=== PATIENT | male | born 1950 | race Caucasian/White ===

== ENCOUNTER 2022-01-22 16:53 | Inpatient (IN) ==
[2022-01-22 17:34] LABS: Basophils # 0.1 K/mcL (0.0-0.2); Basophils % 0.4 %; Eosinophils % 0.1 %; Hematocrit 27.8 % (37.5-50.1); Immature Granulocytes % 1.7 % (0-4); Lymphocytes % 5.1 %; Mean Corpuscular HGB Conc 32.4 g/dL (31.6-35.5); Mean Corpuscular Hemoglobin 30.5 pg (28.0-33.3); Mean Corpuscular Volume 94.2 fL (83.0-100.0); Mean Platelet Volume 9.9 fL (9.4-12.4); Monocytes # 1.6 K/mcL (0.0-1.3); Monocytes % 8.4 %; Platelet Count 466 K/mcL (140-400); Red Blood Count 2.95 M/mcL (4.19-5.50); Segmented Neutrophils % 84.3 %; White Blood Count 19.4 K/mcL (4.3-11.1)
[2022-01-22 17:42] LABS: Neutrophils # 16.4 K/mcL (1.6-8.9)
[2022-01-22 17:49] LABS: BUN/Creatinine Ratio 16 (6-26); Blood Urea Nitrogen 14 mg/dL (8-23); Calcium 8.7 mg/dL (8.6-10.3); Carbon Dioxide 25 mEq/L (23-29); Chloride 100 mEq/L (98-107); Glucose 96 mg/dL (70-105); Osmolality,Calculated 278 (280-300); Potassium 4.4 mEq/L (3.5-5.1); Sodium 134 mEq/L (136-145); eGFR For African Americans > 60 (> 60); eGFR For Non-African Americans > 60 (> 60)
[2022-01-22 17:53] LABS: Troponin I < 0.03 ng/mL (< 0.04)
[2022-01-22 17:56] LABS: Bilirubin,Urine Small (Negative); Blood,Urine Trace-intact (Negative); Clarity,Urine Clear (Clear); Color,Urine Yellow (Yellow); Glucose,Urine (UA) Normal (Normal); Ketones,Urine 15 mg/dL (Negative); Leukocyte Esterase,Urine Negative (Negative); Nitrite,Urine Negative (Negative); Protein,Urine 30 mg/dL (Neg-Trace); Urobilinogen,Urine Normal (Normal)
[2022-01-22 18:02] LABS: RBC,Urine 0-3 per hpf (0-3); WBC,Urine 0-3 per hpf (0-3)
[2022-01-22] MEDS ORDERED: *HR* HYDROcodone/Acet 5/325 mg TABLET PO ONE (18:48)
[2022-01-22] MEDS ORDERED: Acetaminophen 325 MG TABLET PO PRN (19:41)
[2022-01-22] MEDS ORDERED: Naloxone 0.4 MG/ML INJ IVP PRN (19:41)
[2022-01-22] MEDS ORDERED: Ondansetron 4 MG/2 ML VIAL IVP PRN (19:41)
[2022-01-22] MEDS: levETIRAcetam 250 MG TABLET PO SCH (20:59)
[2022-01-22] MEDS: Apixaban 5 MG TABLET PO SCH (21:00)
[2022-01-22] MEDS: Mirtazapine 15 MG TABLET PO SCH (21:01)
[2022-01-22] MEDS: Melatonin 3 MG TABLET PO PRN (21:23)
[2022-01-23 06:52] LABS: Hematocrit 24.9 % (37.5-50.1); Hemoglobin 7.8 g/dL (12.9-16.9); Mean Corpuscular HGB Conc 31.3 g/dL (31.6-35.5); Mean Corpuscular Hemoglobin 29.5 pg (28.0-33.3); Mean Corpuscular Volume 94.3 fL (83.0-100.0); Mean Platelet Volume 10.3 fL (9.4-12.4); Platelet Count 462 K/mcL (140-400); Red Blood Count 2.64 M/mcL (4.19-5.50); Red Cell Distribution Width 15.3 % (11.5-14.5); White Blood Count 15.5 K/mcL (4.3-11.1)
[2022-01-23 07:10] LABS: BUN/Creatinine Ratio 19 (6-26); Blood Urea Nitrogen 17 mg/dL (8-23); Calcium 8.3 mg/dL (8.6-10.3); Carbon Dioxide 25 mEq/L (23-29); Chloride 101 mEq/L (98-107); Glucose 88 mg/dL (70-105); Osmolality,Calculated 275 (280-300); Potassium 3.9 mEq/L (3.5-5.1); Sodium 132 mEq/L (136-145); eGFR For African Americans > 60 (> 60); eGFR For Non-African Americans > 60 (> 60)
[2022-01-23] MEDS ORDERED: lisinopriL 20 MG TABLET PO SCH (09:00)
[2022-01-23] MEDS: levETIRAcetam 250 MG TABLET PO SCH ×2 (10:11→20:14)
[2022-01-23] MEDS: Venlafaxine XR (24 HR) 75 MG CAP.ER.24H PO SCH (10:11)
[2022-01-23] MEDS: Aspirin Enteric Coated 81 MG Tablet PO SCH (10:11)
[2022-01-23] MEDS: Apixaban 5 MG TABLET PO SCH ×2 (10:11→20:14)
[2022-01-23] MEDS ORDERED: 0.9 % Sodium Chloride 1,000 ML ONE (18:58)
[2022-01-23] MEDS ORDERED: 0.9 % Sodium Chloride 1,000 ML IVC SCH (19:00)
[2022-01-23] MEDS ORDERED: 0.9 % Sodium Chloride 1,000 ML IVC ONE (19:29)
[2022-01-23] MEDS: Doxycycline 100 MG CAPSULE PO SCH (20:13)
[2022-01-23] MEDS: Mirtazapine 15 MG TABLET PO SCH (20:14)
[2022-01-23] MEDS: *HR* Amiodarone 200 MG TABLET PO SCH (20:14)
[2022-01-24] MEDS: *HR* HYDROcodone/Acet 5/325 mg TABLET PO PRN ×2 (05:22→20:07)
[2022-01-24] MEDS: Metoprolol XL (24 HR) Succ 50 MG TAB.ER.24H PO SCH (08:04)
[2022-01-24] MEDS: Apixaban 5 MG TABLET PO SCH ×2 (08:04→20:07)
[2022-01-24] MEDS: Doxycycline 100 MG CAPSULE PO SCH ×2 (08:05→20:07)
[2022-01-24] MEDS: Venlafaxine XR (24 HR) 75 MG CAP.ER.24H PO SCH (08:05)
[2022-01-24] MEDS: Aspirin Enteric Coated 81 MG Tablet PO SCH (08:05)
[2022-01-24] MEDS: levETIRAcetam 250 MG TABLET PO SCH ×2 (08:05→20:07)
[2022-01-24 11:24] LABS: Basophils # 0.1 K/mcL (0.0-0.2); Basophils % 0.6 %; Eosinophils # 0.3 K/mcL (0.0-0.6); Eosinophils % 2.1 %; Hematocrit 25.2 % (37.5-50.1); Hemoglobin 7.8 g/dL (12.9-16.9); Immature Granulocytes % 1.9 % (0-4); Lymphocytes # 1.5 K/mcL (0.6-4.6); Lymphocytes % 11.7 %; Mean Corpuscular Hemoglobin 29.9 pg (28.0-33.3); Mean Corpuscular Volume 96.6 fL (83.0-100.0); Monocytes # 1.4 K/mcL (0.0-1.3); Monocytes % 10.8 %; Platelet Count 436 K/mcL (140-400); Red Blood Count 2.61 M/mcL (4.19-5.50); Red Cell Distribution Width 15.9 % (11.5-14.5); Segmented Neutrophils % 72.9 %; White Blood Count 12.7 K/mcL (4.3-11.1)
[2022-01-24 11:27] LABS: Neutrophils # 9.3 K/mcL (1.6-8.9)
[2022-01-24 11:43] LABS: Alanine Aminotransferase 32 Units/L (7-52); Albumin 2.8 g/dL (3.5-5.7); Alkaline Phosphatase 95 Units/L (34-104); Aspartate Amino Transferase 48 Units/L (13-39); BUN/Creatinine Ratio 18 (6-26); Bilirubin,Total 1.2 mg/dL (0.3-1.0); Blood Urea Nitrogen 18 mg/dL (8-23); Calcium 7.9 mg/dL (8.6-10.3); Carbon Dioxide 27 mEq/L (23-29); Chloride 102 mEq/L (98-107); Globulin 2.9 g/dL (2.4-3.5); Glucose 101 mg/dL (70-105); Osmolality,Calculated 280 (280-300); Sodium 134 mEq/L (136-145); Total Protein 5.7 g/dL (6.4-8.9); eGFR For African Americans > 60 (> 60); eGFR For Non-African Americans > 60 (> 60)
[2022-01-24] MEDS: Mirtazapine 15 MG TABLET PO SCH (20:07)
[2022-01-24] MEDS: *HR* Amiodarone 200 MG TABLET PO SCH (20:07)
[2022-01-24] MEDS: Melatonin 3 MG TABLET PO PRN (21:55)
[2022-01-25] MEDS: *HR* HYDROcodone/Acet 5/325 mg TABLET PO PRN ×2 (02:10→20:01)
[2022-01-25 04:21] LABS: Hematocrit 23.7 % (37.5-50.1); Hemoglobin 7.3 g/dL (12.9-16.9); Mean Corpuscular HGB Conc 30.8 g/dL (31.6-35.5); Mean Corpuscular Hemoglobin 29.7 pg (28.0-33.3); Mean Corpuscular Volume 96.3 fL (83.0-100.0); Platelet Count 419 K/mcL (140-400); Red Blood Count 2.46 M/mcL (4.19-5.50); White Blood Count 13.1 K/mcL (4.3-11.1)
[2022-01-25 04:37] LABS: Alanine Aminotransferase 27 Units/L (7-52); Albumin 2.7 g/dL (3.5-5.7); Albumin/Globulin Ratio 0.9 (1.1-2.2); Alkaline Phosphatase 91 Units/L (34-104); Aspartate Amino Transferase 35 Units/L (13-39); BUN/Creatinine Ratio 20 (6-26); Bilirubin,Total 1.1 mg/dL (0.3-1.0); Blood Urea Nitrogen 16 mg/dL (8-23); Carbon Dioxide 25 mEq/L (23-29); Chloride 104 mEq/L (98-107); Globulin 2.9 g/dL (2.4-3.5); Glucose 100 mg/dL (70-105); Osmolality,Calculated 279 (280-300); Potassium 3.9 mEq/L (3.5-5.1); Sodium 134 mEq/L (136-145); Total Protein 5.6 g/dL (6.4-8.9); eGFR For African Americans > 60 (> 60); eGFR For Non-African Americans > 60 (> 60)
[2022-01-25] MEDS: Aspirin Enteric Coated 81 MG Tablet PO SCH (09:26)
[2022-01-25] MEDS: Doxycycline 100 MG CAPSULE PO SCH ×2 (09:26→20:01)
[2022-01-25] MEDS: Metoprolol XL (24 HR) Succ 50 MG TAB.ER.24H PO SCH (09:26)
[2022-01-25] MEDS: levETIRAcetam 250 MG TABLET PO SCH ×2 (09:26→20:02)
[2022-01-25] MEDS: Venlafaxine XR (24 HR) 75 MG CAP.ER.24H PO SCH (09:26)
[2022-01-25] MEDS: Apixaban 5 MG TABLET PO SCH ×2 (09:26→20:02)
[2022-01-25] MEDS: Mirtazapine 15 MG TABLET PO SCH (20:02)
[2022-01-25] MEDS: *HR* Amiodarone 200 MG TABLET PO SCH (20:02)
[2022-01-25] MEDS: Melatonin 3 MG TABLET PO PRN (20:02)
[2022-01-26] MEDS: Aspirin Enteric Coated 81 MG Tablet PO SCH (08:36)
[2022-01-26] MEDS: Doxycycline 100 MG CAPSULE PO SCH ×2 (08:37→21:07)
[2022-01-26] MEDS: levETIRAcetam 250 MG TABLET PO SCH ×2 (08:37→21:07)
[2022-01-26] MEDS: Apixaban 5 MG TABLET PO SCH ×2 (08:37→21:06)
[2022-01-26] MEDS: Venlafaxine XR (24 HR) 75 MG CAP.ER.24H PO SCH (08:37)
[2022-01-26] MEDS: Metoprolol XL (24 HR) Succ 50 MG TAB.ER.24H PO SCH (08:37)
[2022-01-26] MEDS ORDERED: Mag Hydrox/Al Hydrox/Simeth 30 ML UDC PO PRN (17:23)
[2022-01-26] MEDS: Mirtazapine 15 MG TABLET PO SCH (21:06)
[2022-01-26] MEDS: *HR* Amiodarone 200 MG TABLET PO SCH (21:07)
[2022-01-26] MEDS: *HR* HYDROcodone/Acet 5/325 mg TABLET PO PRN (21:22)
[2022-01-27] MEDS: *HR* HYDROcodone/Acet 5/325 mg TABLET PO PRN (03:22)
[2022-01-27] MEDS: Melatonin 3 MG TABLET PO PRN (03:22)
[2022-01-27 07:46] VITALS: RESP 16
[2022-01-27] MEDS: Apixaban 5 MG TABLET PO SCH (07:51)
[2022-01-27] MEDS: Aspirin Enteric Coated 81 MG Tablet PO SCH (07:51)
[2022-01-27] MEDS: levETIRAcetam 250 MG TABLET PO SCH (07:51)
[2022-01-27] MEDS: Venlafaxine XR (24 HR) 75 MG CAP.ER.24H PO SCH (07:51)
[2022-01-27] MEDS: Metoprolol XL (24 HR) Succ 50 MG TAB.ER.24H PO SCH (07:51)
[2022-01-27] MEDS: Doxycycline 100 MG CAPSULE PO SCH (07:52)
[2022-01-27] MEDS ORDERED: Furosemide 20 MG TABLET PO PRN (11:25)
[2022-01-27 12:02] LABS: Basophils # 0.1 K/mcL (0.0-0.2); Basophils % 0.7 %; Eosinophils # 0.3 K/mcL (0.0-0.6); Eosinophils % 2.6 %; Hematocrit 30.3 % (37.5-50.1); Hemoglobin 9.3 g/dL (12.9-16.9); Immature Granulocytes % 1.3 % (0-4); Lymphocytes # 1.2 K/mcL (0.6-4.6); Lymphocytes % 12.4 %; Mean Corpuscular HGB Conc 30.7 g/dL (31.6-35.5); Mean Corpuscular Hemoglobin 29.4 pg (28.0-33.3); Mean Corpuscular Volume 95.9 fL (83.0-100.0); Monocytes % 10.3 %; Neutrophils # 6.9 K/mcL (1.6-8.9); Platelet Count 448 K/mcL (140-400); Red Blood Count 3.16 M/mcL (4.19-5.50); Red Cell Distribution Width 16.3 % (11.5-14.5); Segmented Neutrophils % 72.7 %; White Blood Count 9.5 K/mcL (4.3-11.1)
[2022-01-27 12:17] LABS: BUN/Creatinine Ratio 21 (6-26); Blood Urea Nitrogen 18 mg/dL (8-23); Calcium 8.4 mg/dL (8.6-10.3); Carbon Dioxide 30 mEq/L (23-29); Chloride 101 mEq/L (98-107); Glucose 93 mg/dL (70-105); Osmolality,Calculated 280 (280-300); Potassium 4.4 mEq/L (3.5-5.1); Sodium 134 mEq/L (136-145); eGFR For African Americans > 60 (> 60); eGFR For Non-African Americans > 60 (> 60)
[2022-01-27 12:46] VITALS: BP 93/58; PULSE 91; TEMP 98.5; O2SAT 94
== END 2022-01-27 13:36 | DRG 308 ==
LOC: EMEROOGRE 16:53 → INPGRE 16:53
PROVIDERS: ADMIT Family Medicine; ATTEND Family Medicine